=== PATIENT | female | born 1945 | race Caucasian/White ===

== ENCOUNTER 2021-09-09 09:53 | Inpatient (IN) | payer MEDICARE ==
[~2021-09-09] VITALS: Ht 170.2 cm; Wt 61.7 kg
[~2021-09-09 09:53] MED LIST: ATROPINE SULFATE 1MG/10ML SYR ONE; ETOMIDATE 2MG/ML 10ML VIAL IV ONE; SUCCINYLCHOLINE CHLORIDE 200MG/10ML IV ONE; VECURONIUM BROMIDE 10 MG/VIAL IV ONE
[2021-09-09] MEDS ORDERED: SODIUM CHLORIDE 0.9% 1000ML BAG (SEPSIS BOLUS) IV ONE (10:15)
[2021-09-09 10:54] LABS: BASOPHILS % 0.1 % (0.0-2.0); EOSINOPHILS % 0.2 % (0.0-5.0); HEMATOCRIT. 27.8 % (36.0-48.0); HEMOGLOBIN. 9.8 g/dL (12.0-16.0); LYMPHOCYTES % 13.8 % (20.0-50.0); MEAN CORPUSCULAR HEMOGLOBIN 37.9 pg (28.0-32.0); MEAN CORPUSCULAR VOLUME 106.6 fL (81.0-99.0); MEAN PLATELET VOLUME 8.1 fl (7.4-10.4); MONOCYTES % 8.7 % (2.0-8.0); NEUTROPHILS % 77.2 % (40.0-76.0); PLATELET 295 x1000/uL (130-400); RED CELL DISTRIBUTION WIDTH 13.3 % (11.6-14.6)
[2021-09-09 10:58] LABS: CHLORIDE 86 mEq/L (98-107)
[2021-09-09 11:02] LABS: ETHANOL BLOOD < 10 mg/dL
[2021-09-09] MEDS ORDERED: VANCOMYCIN 1G PREMIX 200 ML IV ONE (12:00)
[2021-09-09] MEDS ORDERED: PIPERACILLIN/TAZ 3.375G PREMIX 50 ML IV ONE (12:00)
[2021-09-09] MEDS ORDERED: MAGNESIUM 2 G PREMIX 50 ML IV ONE (12:15)
[2021-09-09] MEDS ORDERED: HEPARIN 5000 UNITS/ML VIAL IV ONE (12:30)
[2021-09-09] MEDS ORDERED: HEPARIN 25,000 UNITS PREMIX 250 ML IV SCH (12:30)
[2021-09-09] MEDS ORDERED: HEPARIN 25,000 UNITS in DEXT 5% WATER 245 ML IV PRN (12:45)
[2021-09-09] MEDS ORDERED: VANCOMYCIN 1,000 MG in DEXT 5% WATER 250 ML IV NR (12:45)
[2021-09-09] MEDS ORDERED: HEPARIN IV SCH ×2 (12:50→12:52)
[2021-09-09] MEDS ORDERED: [UNRECOGNIZED DRUG - OTHER] IV SCH (12:50)
[2021-09-09] MEDS ORDERED: [UNRECOGNIZED DRUG - OTHER] IV SCH (12:52)
[2021-09-09 12:59] LABS: CLARITY URINE CLEAR (CLEAR); COLOR URINE YELLOW (YELLOW); KETONES URINE NEGATIVE (NEGATIVE); LEUKOCYTE ESTERASE URINE NEGATIVE (NEGATIVE); NITRITE URINE NEGATIVE (NEGATIVE); OCCULT BLOOD URINE NEGATIVE (NEGATIVE); PROTEIN URINE 1+ (NEGATIVE); SPECIFIC GRAVITY URINE 1.025 (1.005-1.030); UROBILINOGEN URINE 0.2 E.U./dL (0.2-1.0)
[2021-09-09] MEDS ORDERED: HEPARIN 25,000 UNITS in DEXT 5% WATER 245 ML IV SCH (13:00)
[2021-09-09 13:08] LABS: *BARBITURATES SCREEN URINE NEGATIVE (NEGATIVE); *BENZODIAZEPINES SCREEN URINE NEGATIVE (NEGATIVE); *COCAINE SCREEN URINE NEGATIVE (NEGATIVE)
[2021-09-09 13:09] LABS: CANNABINOID URINE SCREEN NEGATIVE (NEGATIVE); METHADONE URINE SCREEN NEGATIVE (NEGATIVE); OPIATES URINE SCREEN NEGATIVE (NEGATIVE); PHENCYCLIDINE URINE SCREEN NEGATIVE (NEGATIVE)
[2021-09-09] MEDS ORDERED: LEVETIRACETAM 1000MG PREMIX 100 ML IV ONE (13:15)
[2021-09-09 13:18] LABS: *AMPHETAMINES SCREEN URINE NEGATIVE (NEGATIVE)
[2021-09-09 13:22] LABS: INR 1.1; PARTIAL THROMBOPLASTIN TIME 29.3 sec (23.4-31.0); PROTHROMBIN TIME 11.7 sec (9.6-11.0)
[2021-09-09] MEDS: PANTOPRAZOLE SODIUM 40 MG/VIAL IV SCH (13:30)
[2021-09-09] MEDS ORDERED: ACETAMINOPHEN 650MG SUPP PR PRN (13:30)
[2021-09-09] MEDS ORDERED: SUCCINYLCHOLINE CHLORIDE 200MG/10ML IV ONE (13:30)
[2021-09-09] MEDS ORDERED: ONDANSETRON HCL 4MG/2ML INJ IV PRN (13:30)
[2021-09-09] MEDS: DEXT 5%/0.45% NACL 1000ML 1,000 ML IV SCH (13:30)
[2021-09-09] MEDS ORDERED: ETOMIDATE 2MG/ML 10ML VIAL IV ONE (13:30)
[2021-09-09 13:56] LABS: BG CARBOXYHEMOGLOBIN 0.3 % (0.5-1.5); BG DEOXYHEMOGLOBIN 0.6 % (0.0-5.0); BG HCO3 ACT 14.8 mmol/L (22.0-26.0); BG METHEMOGLOBIN 0.3 % (0.0-1.5); BG OXYGEN SATURATION 99.4 % (92.0-98.5); BG OXYHEMOGLOBIN 98.8 % (94.0-97.0); BG PCO2 41.7 mmHg (35.0-45.0); BG PH 7.169 (7.350-7.450); BG PO2 264.6 mmHg (75.0-100.0); BG SAMPLE SITE RIGHT FEMORAL; BG TOTAL HEMOGLOBIN 10.9 g/dL (12.0-18.0); BG VENT MODE VENT - AC
[2021-09-09] MEDS ORDERED: HEPARIN 5000 UNITS/ML VIAL IV PRN ×2 (14:00)
[2021-09-09] MEDS ORDERED: FENTANYL CITRATE/PF 2,500 MCG in SODIUM CHLORIDE 0.9% 200 ML IV PRN ×2 (14:15→14:30)
[2021-09-09] MEDS ORDERED: PROPOFOL 10MG/ML 100ML 100 ML IV PRN (14:15)
[2021-09-09 14:27] LABS: T4 FREE 1.4 ng/dL (0.76-1.46)
[2021-09-09] MEDS ORDERED: SODIUM BICARBONATE 8.4% 1 MEQ/ML 50ML SYR IV NR (14:30)
[2021-09-09] MEDS: FENTANYL 2500MCG/250ML PMX 250 ML IV PRN (15:05)
[2021-09-09 15:09] LABS: BG BASE EXCESS -7.7 mmol/L (-2.0-2.0); BG CARBOXYHEMOGLOBIN 0.3 % (0.5-1.5); BG DEOXYHEMOGLOBIN 0.5 % (0.0-5.0); BG HCO3 ACT 18.2 mmol/L (22.0-26.0); BG METHEMOGLOBIN 0.4 % (0.0-1.5); BG OXYGEN SATURATION 99.5 % (92.0-98.5); BG OXYHEMOGLOBIN 98.8 % (94.0-97.0); BG PH 7.297 (7.350-7.450); BG PO2 317.5 mmHg (75.0-100.0); BG SAMPLE SITE RIGHT BRACHIAL; BG TOTAL HEMOGLOBIN 10.1 g/dL (12.0-18.0); BG VENT MODE VENT - AC
[2021-09-09] MEDS ORDERED: PIPERACILLIN/TAZOBACTAM 3.375 G in DEXTROSE 5% WATER 50 ML IV SCH (22:00)
[2021-09-09] MEDS ORDERED: FOLIC ACID 1 MG, THIAMINE HCL 100 MG, MVI, ADULT NO.1 10 ML in DEXTROSE 5% WATER 1,000 ML IV SCH ×4 (23:00)
[2021-09-10] VITALS (88 sets, daily range): BP systolic 86–129; BP diastolic 30–109
[2021-09-10] MEDS ORDERED: PHENYLEPHRINE 100 MG in DEXT 5% WATER 250 ML IV PRN (01:00)
[2021-09-10] MEDS ORDERED: PHENYLEPHRINE 100 MG in DEXT 5% WATER 240 ML IV PRN (02:00)
[2021-09-10] MEDS: NOREPINEPHRINE 8 MG in DEXTROSE 5% WATER 250 ML IV PRN ×2 (03:20→09:34)
[2021-09-10 04:13] LABS: BASOPHILS % 0.1 % (0.0-2.0); EOSINOPHILS % 0.1 % (0.0-5.0); HEMATOCRIT. 32.1 % (36.0-48.0); LYMPHOCYTES % 16.5 % (20.0-50.0); MEAN CORPUSCULAR HEMOGLOBIN 36.8 pg (28.0-32.0); MEAN PLATELET VOLUME 8.3 fl (7.4-10.4); MONOCYTES % 10.2 % (2.0-8.0); NEUTROPHILS % 73.1 % (40.0-76.0); PLATELET 247 x1000/uL (130-400); RED BLOOD CELL COUNT 2.72 mill/uL (4.2-5.4); RED CELL DISTRIBUTION WIDTH 15.3 % (11.6-14.6)
[2021-09-10 04:28] LABS: CHLORIDE 93 mEq/L (98-107)
[2021-09-10] MEDS: PIPERACILLIN/TAZOBACTAM 3.375 G in DEXTROSE 5% WATER 50 ML IV SCH ×3 (05:30→21:33)
[2021-09-10 05:48] LABS: PLATELET ESTIMATE NORMAL
[2021-09-10] MEDS: DEXT 5%/0.45% NACL 1000ML 1,000 ML IV SCH ×2 (06:29→23:00)
[2021-09-10] MEDS: PANTOPRAZOLE SODIUM 40 MG/VIAL IV SCH (08:06)
[2021-09-10 09:38] LABS: BG BASE EXCESS 1.2 mmol/L (-2.0-2.0); BG CARBOXYHEMOGLOBIN 0.3 % (0.5-1.5); BG DEOXYHEMOGLOBIN 1.3 % (0.0-5.0); BG FRACTION INSPIRED OXYGEN 40; BG HCO3 ACT 22.7 mmol/L (22.0-26.0); BG METHEMOGLOBIN 0.2 % (0.0-1.5); BG OXYGEN SATURATION 98.7 % (92.0-98.5); BG OXYHEMOGLOBIN 98.2 % (94.0-97.0); BG PCO2 25.8 mmHg (35.0-45.0); BG PH 7.563 (7.350-7.450); BG SAMPLE SITE LEFT RADIAL; BG TOTAL HEMOGLOBIN 9.6 g/dL (12.0-18.0); BG VENT MODE VENT - AC
[2021-09-10] MEDS ORDERED: PROPOFOL 10MG/ML 100ML 100 ML IV PRN (12:45)
[2021-09-10] MEDS ORDERED: IPRATROPIUM/ALBUTEROL 0.5-3(2.5)MG/3ML NEB HHN PRN (12:45)
[2021-09-10] MEDS: LEVETIRACETAM 500MG PREMIX 100 ML IV SCH ×2 (13:45→20:31)
[2021-09-10] MEDS: IPRATROPIUM/ALBUTEROL 0.5-3(2.5)MG/3ML NEB HHN SCH (20:40)
[2021-09-10] MEDS: FENTANYL 2500MCG/250ML PMX 250 ML IV PRN (21:31)
[2021-09-11] VITALS (91 sets, daily range): BP systolic 83–143; BP diastolic 29–89
[2021-09-11] MEDS: NOREPINEPHRINE 8 MG in DEXT 5% WATER 242 ML IV PRN ×2 (00:13→21:54)
[2021-09-11] MEDS: IPRATROPIUM/ALBUTEROL 0.5-3(2.5)MG/3ML NEB HHN SCH ×4 (00:30→20:36)
[2021-09-11] MEDS: PIPERACILLIN/TAZOBACTAM 3.375 G in DEXTROSE 5% WATER 50 ML IV SCH ×3 (05:31→21:53)
[2021-09-11 08:07] LABS: BG BASE EXCESS 2.3 mmol/L (-2.0-2.0); BG CARBOXYHEMOGLOBIN 0.2 % (0.5-1.5); BG DEOXYHEMOGLOBIN 1.4 % (0.0-5.0); BG HCO3 ACT 25.3 mmol/L (22.0-26.0); BG METHEMOGLOBIN 0.1 % (0.0-1.5); BG OXYGEN SATURATION 98.6 % (92.0-98.5); BG OXYHEMOGLOBIN 98.3 % (94.0-97.0); BG PCO2 32.6 mmHg (35.0-45.0); BG PH 7.507 (7.350-7.450); BG PO2 135.3 mmHg (75.0-100.0); BG SAMPLE SITE RIGHT RADIAL; BG TOTAL HEMOGLOBIN 8.6 g/dL (12.0-18.0); BG VENT MODE VENT - AC
[2021-09-11] MEDS: PANTOPRAZOLE SODIUM 40 MG/VIAL IV SCH (08:29)
[2021-09-11] MEDS: LEVETIRACETAM 500MG PREMIX 100 ML IV SCH ×2 (08:29→21:01)
[2021-09-11] MEDS ORDERED: ACETAMINOPHEN 650MG/20.3ML UDC PO PRN (08:30)
[2021-09-11 13:08] LABS: BASOPHILS % 0.2 % (0.0-2.0); CHLORIDE 99 mEq/L (98-107); EOSINOPHILS % 0.4 % (0.0-5.0); HEMATOCRIT. 22.3 % (36.0-48.0); HEMOGLOBIN. 7.6 g/dL (12.0-16.0); LYMPHOCYTES % 19.1 % (20.0-50.0); MEAN CORPUSCULAR VOLUME 108.2 fL (81.0-99.0); MEAN PLATELET VOLUME 7.9 fl (7.4-10.4); MONOCYTES % 9.9 % (2.0-8.0); NEUTROPHILS % 70.4 % (40.0-76.0); PLATELET 283 x1000/uL (130-400); RED BLOOD CELL COUNT 2.06 mill/uL (4.2-5.4); RED CELL DISTRIBUTION WIDTH 13.9 % (11.6-14.6)
[2021-09-11 13:59] LABS: TOTAL IRON BINDING CAPACITY 221 ug/dL (250-450)
[2021-09-11] MEDS ORDERED: POTASSIUM CHLORIDE 20MEQ/PACKET PO NR (16:25)
[2021-09-11] MEDS: DEXT 5%/0.45% NACL 1000ML 1,000 ML IV SCH (16:46)
[2021-09-11] MEDS: PROPOFOL 10MG/ML 100ML 100 ML IV PRN (19:37)
[2021-09-12] VITALS (95 sets, daily range): BP systolic 92–166; BP diastolic 46–99
[2021-09-12] MEDS: IPRATROPIUM/ALBUTEROL 0.5-3(2.5)MG/3ML NEB HHN SCH ×4 (00:13→20:48)
[2021-09-12] MEDS: PROPOFOL 10MG/ML 100ML 100 ML IV PRN (05:07)
[2021-09-12 06:23] LABS: HEMATOCRIT 26.2 % (36.0-48.0); HEMOGLOBIN 9.1 g/dL (12.0-16.0)
[2021-09-12] MEDS: PIPERACILLIN/TAZOBACTAM 3.375 G in DEXTROSE 5% WATER 50 ML IV SCH ×3 (06:27→21:32)
[2021-09-12] MEDS ORDERED: FENTANYL CITRATE 2,500 MCG in SODIUM CHLORIDE 0.9% 200 ML IV PRN (07:15)
[2021-09-12 08:40] LABS: BG BASE EXCESS 1.5 mmol/L (-2.0-2.0); BG CARBOXYHEMOGLOBIN 0.3 % (0.5-1.5); BG DEOXYHEMOGLOBIN 1.7 % (0.0-5.0); BG FRACTION INSPIRED OXYGEN 35; BG HCO3 ACT 25.5 mmol/L (22.0-26.0); BG METHEMOGLOBIN 0.3 % (0.0-1.5); BG OXYGEN SATURATION 98.3 % (92.0-98.5); BG OXYHEMOGLOBIN 97.7 % (94.0-97.0); BG PCO2 37.6 mmHg (35.0-45.0); BG PH 7.449 (7.350-7.450); BG PO2 116.7 mmHg (75.0-100.0); BG SAMPLE SITE LEFT RADIAL; BG TOTAL HEMOGLOBIN 9.3 g/dL (12.0-18.0); BG VENT MODE VENT - AC
[2021-09-12] MEDS: DEXT 5%/0.45% NACL 1000ML 1,000 ML IV SCH (09:41)
[2021-09-12] MEDS: PANTOPRAZOLE SODIUM 40 MG/VIAL IV SCH (09:41)
[2021-09-12] MEDS: LEVETIRACETAM 500MG PREMIX 100 ML IV SCH ×2 (09:41→21:32)
[2021-09-12] MEDS: ENOXAPARIN 40MG/0.4ML SYR SUBCUT SCH (10:15)
[2021-09-12 12:03] LABS: BG BASE EXCESS 1.1 mmol/L (-2.0-2.0); BG CARBOXYHEMOGLOBIN 0.3 % (0.5-1.5); BG DEOXYHEMOGLOBIN 1.9 % (0.0-5.0); BG FRACTION INSPIRED OXYGEN 35; BG METHEMOGLOBIN 0.1 % (0.0-1.5); BG OXYGEN SATURATION 98.1 % (92.0-98.5); BG OXYHEMOGLOBIN 97.7 % (94.0-97.0); BG PCO2 31.3 mmHg (35.0-45.0); BG PH 7.502 (7.350-7.450); BG PO2 118.2 mmHg (75.0-100.0); BG SAMPLE SITE LEFT RADIAL; BG TOTAL HEMOGLOBIN 8.7 g/dL (12.0-18.0); BG VENT MODE VENT - CPAP
[2021-09-12 12:22] LABS: BASOPHILS % 0.1 % (0.0-2.0); HEMATOCRIT. 25.4 % (36.0-48.0); HEMOGLOBIN. 8.8 g/dL (12.0-16.0); MEAN CORPUSCULAR HEMOGLOBIN 36.8 pg (28.0-32.0); MEAN CORPUSCULAR VOLUME 106.1 fL (81.0-99.0); MEAN PLATELET VOLUME 7.8 fl (7.4-10.4); MONOCYTES % 9.2 % (2.0-8.0); NEUTROPHILS % 73.7 % (40.0-76.0); PLATELET 236 x1000/uL (130-400); RED BLOOD CELL COUNT 2.39 mill/uL (4.2-5.4); RED CELL DISTRIBUTION WIDTH 15.1 % (11.6-14.6)
[2021-09-12 12:32] LABS: CHLORIDE 102 mEq/L (98-107)
[2021-09-12] MEDS: DILTIAZEM HCL 30MG TABLET PO PRN (13:03)
[2021-09-12] MEDS: ACETAMINOPHEN 650MG/20.3ML UDC PO PRN (13:18)
[2021-09-12] MEDS ORDERED: AMIODARONE HCL 900 MG in DEXT 5% WATER 482 ML IV PRN (14:45)
[2021-09-12] MEDS ORDERED: DOCUSATE SODIUM SUGAR FREE 100MG/10ML UDC NG SCH (17:30)
[2021-09-13] VITALS (91 sets, daily range): BP systolic 92–143; BP diastolic 44–98
[2021-09-13] MEDS: IPRATROPIUM/ALBUTEROL 0.5-3(2.5)MG/3ML NEB HHN SCH ×4 (01:56→20:55)
[2021-09-13] MEDS: DEXT 5%/0.45% NACL 1000ML 1,000 ML IV SCH ×2 (02:07→17:17)
[2021-09-13] MEDS: LORAZEPAM 2MG/ML CPJ IV PRN ×3 (02:16→20:53)
[2021-09-13] MEDS: PIPERACILLIN/TAZOBACTAM 3.375 G in DEXTROSE 5% WATER 50 ML IV SCH ×3 (05:38→21:50)
[2021-09-13] MEDS ORDERED: IPRATROPIUM/ALBUTEROL 0.5-3(2.5)MG/3ML NEB ONE ×2 (08:10→11:01)
[2021-09-13] MEDS: LEVETIRACETAM 500MG PREMIX 100 ML IV SCH ×2 (08:38→20:52)
[2021-09-13] MEDS: PANTOPRAZOLE SODIUM 40 MG/VIAL IV SCH (08:38)
[2021-09-13 08:44] LABS: BG BASE EXCESS 1.1 mmol/L (-2.0-2.0); BG CARBOXYHEMOGLOBIN 0.3 % (0.5-1.5); BG DEOXYHEMOGLOBIN 1.8 % (0.0-5.0); BG HCO3 ACT 25.3 mmol/L (22.0-26.0); BG METHEMOGLOBIN 0.2 % (0.0-1.5); BG OXYGEN SATURATION 98.2 % (92.0-98.5); BG OXYHEMOGLOBIN 97.7 % (94.0-97.0); BG PCO2 38.8 mmHg (35.0-45.0); BG PH 7.433 (7.350-7.450); BG PO2 106.2 mmHg (75.0-100.0); BG SAMPLE SITE RIGHT RADIAL; BG TOTAL HEMOGLOBIN 8.9 g/dL (12.0-18.0); BG VENT MODE COOL AEROSOL
[2021-09-13] MEDS: FOLIC ACID 1MG TABLET PO SCH (08:44)
[2021-09-13] MEDS: THIAMINE HCL 100MG TABLET PO SCH (08:44)
[2021-09-13] MEDS: ENOXAPARIN 40MG/0.4ML SYR SUBCUT SCH (11:16)
[2021-09-13] MEDS: DILTIAZEM HCL 30MG TABLET PO PRN ×2 (14:07→21:05)
[2021-09-14] VITALS (87 sets, daily range): BP systolic 96–188; BP diastolic 50–169
[2021-09-14] MEDS: PIPERACILLIN/TAZOBACTAM 3.375 G in DEXTROSE 5% WATER 50 ML IV SCH ×3 (06:14→21:12)
[2021-09-14] MEDS: PANTOPRAZOLE SODIUM 40 MG/VIAL IV SCH (08:36)
[2021-09-14] MEDS: THIAMINE HCL 100MG TABLET PO SCH (08:36)
[2021-09-14] MEDS: FOLIC ACID 1MG TABLET PO SCH (08:36)
[2021-09-14] MEDS: LEVETIRACETAM 500MG PREMIX 100 ML IV SCH ×2 (08:37→20:28)
[2021-09-14] MEDS: IPRATROPIUM/ALBUTEROL 0.5-3(2.5)MG/3ML NEB HHN SCH ×2 (08:41)
[2021-09-14] MEDS: DILTIAZEM HCL 30MG TABLET PO PRN (09:33)
[2021-09-14] MEDS: METOPROLOL TARTRATE 25MG TABLET PO SCH ×2 (09:41→20:29)
[2021-09-14] MEDS: ENOXAPARIN 40MG/0.4ML SYR SUBCUT SCH (09:42)
[2021-09-14] MEDS: DEXT 5%/0.45% NACL 1000ML 1,000 ML IV SCH (09:55)
[2021-09-14] MEDS ORDERED: BENZONATATE 100MG CAPSULE PO PRN (10:00)
[2021-09-14] MEDS ORDERED: METO100T16 MT (11:47)
[2021-09-14] MEDS ORDERED: FURO-152 PO (11:47)
[2021-09-14] MEDS ORDERED: APIX5TAB MT (11:47)
[2021-09-14] MEDS ORDERED: LISI-652 MT (11:47)
[2021-09-14] MEDS ORDERED: DIGOXIN 500MCG/2ML AMP IV SCH (12:00)
[2021-09-14 12:53] LABS: BASOPHILS % 0.4 % (0.0-2.0); EOSINOPHILS % 1.1 % (0.0-5.0); HEMATOCRIT. 26.8 % (36.0-48.0); LYMPHOCYTES % 11.4 % (20.0-50.0); MEAN CORPUSCULAR HEMOGLOBIN 35.7 pg (28.0-32.0); MEAN CORPUSCULAR VOLUME 105.7 fL (81.0-99.0); MEAN PLATELET VOLUME 7.6 fl (7.4-10.4); MONOCYTES % 9.9 % (2.0-8.0); NEUTROPHILS % 77.2 % (40.0-76.0); PLATELET 277 x1000/uL (130-400); RED BLOOD CELL COUNT 2.53 mill/uL (4.2-5.4)
[2021-09-14 12:58] LABS: CHLORIDE 101 mEq/L (98-107)
[2021-09-14] MEDS: GUAIFENESIN-DM 200MG-20MG/10ML UDC PO PRN ×2 (13:02→23:47)
[2021-09-14] MEDS: LORAZEPAM 2MG/ML CPJ IV PRN ×2 (13:26→20:28)
[2021-09-14] MEDS: IPRATROPIUM BROMIDE (0.02%) 0.5MG/2.5ML NEB HHN SCH ×2 (14:08→20:41)
[2021-09-14] MEDS: ACETAMINOPHEN 650MG/20.3ML UDC PO PRN (18:51)
[2021-09-15] VITALS (49 sets, daily range): BP systolic 118–173; BP diastolic 60–140
[2021-09-15] MEDS: IPRATROPIUM BROMIDE (0.02%) 0.5MG/2.5ML NEB HHN SCH ×4 (01:06→21:06)
[2021-09-15] MEDS: LORAZEPAM 2MG/ML CPJ IV PRN (02:01)
[2021-09-15] MEDS: DEXT 5%/0.45% NACL 1000ML 1,000 ML IV SCH (02:02)
[2021-09-15] MEDS: DILTIAZEM HCL 30MG TABLET PO PRN (03:13)
[2021-09-15] MEDS: PIPERACILLIN/TAZOBACTAM 3.375 G in DEXTROSE 5% WATER 50 ML IV SCH (05:04)
[2021-09-15 06:19] LABS: BG BASE EXCESS -0.5 mmol/L (-2.0-2.0); BG CARBOXYHEMOGLOBIN 0.3 % (0.5-1.5); BG DEOXYHEMOGLOBIN 1.4 % (0.0-5.0); BG FRACTION INSPIRED OXYGEN 100; BG HCO3 ACT 23.1 mmol/L (22.0-26.0); BG METHEMOGLOBIN 0.3 % (0.0-1.5); BG OXYGEN SATURATION 98.6 % (92.0-98.5); BG PCO2 34.1 mmHg (35.0-45.0); BG PH 7.448 (7.350-7.450); BG PO2 145.2 mmHg (75.0-100.0); BG SAMPLE SITE LEFT RADIAL; BG TOTAL HEMOGLOBIN 11.1 g/dL (12.0-18.0); BG VENT MODE MASK - NRB
[2021-09-15] MEDS ORDERED: FUROSEMIDE 40MG/4ML VIAL IVP SCH (08:00)
[2021-09-15] MEDS: FOLIC ACID 1MG TABLET PO SCH (09:24)
[2021-09-15] MEDS: PANTOPRAZOLE SODIUM 40 MG/VIAL IV SCH (09:24)
[2021-09-15] MEDS: METOPROLOL TARTRATE 50MG TABLET PO SCH ×2 (09:25→20:54)
[2021-09-15] MEDS: LEVETIRACETAM 500MG PREMIX 100 ML IV SCH ×2 (09:25→20:27)
[2021-09-15] MEDS: THIAMINE HCL 100MG TABLET PO SCH (09:25)
[2021-09-15 10:10] LABS: CHLORIDE 101 mEq/L (98-107); HEMATOCRIT. 28.9 % (36.0-48.0); HEMOGLOBIN. 9.8 g/dL (12.0-16.0); MEAN CORPUSCULAR HEMOGLOBIN 35.8 pg (28.0-32.0); MEAN CORPUSCULAR VOLUME 105.7 fL (81.0-99.0); MEAN PLATELET VOLUME 7.7 fl (7.4-10.4); PLATELET 286 x1000/uL (130-400); RED BLOOD CELL COUNT 2.74 mill/uL (4.2-5.4); RED CELL DISTRIBUTION WIDTH 14.7 % (11.6-14.6)
[2021-09-15 10:14] LABS: BG BASE EXCESS 0.5 mmol/L (-2.0-2.0); BG CARBOXYHEMOGLOBIN 0.3 % (0.5-1.5); BG DEOXYHEMOGLOBIN 0.4 % (0.0-5.0); BG FRACTION INSPIRED OXYGEN 100; BG HCO3 ACT 23.1 mmol/L (22.0-26.0); BG METHEMOGLOBIN 0.3 % (0.0-1.5); BG OXYGEN SATURATION 99.6 % (92.0-98.5); BG PCO2 30.5 mmHg (35.0-45.0); BG PH 7.497 (7.350-7.450); BG PO2 312.9 mmHg (75.0-100.0); BG SAMPLE SITE LEFT RADIAL; BG TOTAL HEMOGLOBIN 11.2 g/dL (12.0-18.0); BG VENT MODE MASK - BIPAP
[2021-09-15 12:07] LABS: PLATELET ESTIMATE NORMAL
[2021-09-15] MEDS: FUROSEMIDE 40MG/4ML VIAL IVP SCH (16:17)
[2021-09-16] VITALS (46 sets, daily range): BP systolic 103–170; BP diastolic 34–118
[2021-09-16] MEDS: IPRATROPIUM BROMIDE (0.02%) 0.5MG/2.5ML NEB HHN SCH ×4 (04:52→20:39)
[2021-09-16] MEDS: FUROSEMIDE 40MG/4ML VIAL IVP SCH ×2 (05:46→16:29)
[2021-09-16 06:15] LABS: BASOPHILS % 0.5 % (0.0-2.0); EOSINOPHILS % 0.4 % (0.0-5.0); HEMATOCRIT. 26.5 % (36.0-48.0); HEMOGLOBIN. 9.2 g/dL (12.0-16.0); LYMPHOCYTES % 7.7 % (20.0-50.0); MEAN CORPUSCULAR HEMOGLOBIN 36.2 pg (28.0-32.0); MEAN CORPUSCULAR VOLUME 104.3 fL (81.0-99.0); MEAN PLATELET VOLUME 8.2 fl (7.4-10.4); MONOCYTES % 7.1 % (2.0-8.0); NEUTROPHILS % 84.3 % (40.0-76.0); PLATELET 260 x1000/uL (130-400); RED BLOOD CELL COUNT 2.54 mill/uL (4.2-5.4); RED CELL DISTRIBUTION WIDTH 13.9 % (11.6-14.6)
[2021-09-16 06:47] LABS: CHLORIDE 95 mEq/L (98-107)
[2021-09-16] MEDS: PANTOPRAZOLE SODIUM 40 MG/VIAL IV SCH (08:08)
[2021-09-16] MEDS: LEVETIRACETAM 500MG PREMIX 100 ML IV SCH ×2 (08:08→20:29)
[2021-09-16] MEDS: THIAMINE HCL 100MG TABLET PO SCH (08:09)
[2021-09-16] MEDS: METOPROLOL TARTRATE 50MG TABLET PO SCH ×2 (08:09→21:13)
[2021-09-16] MEDS: FOLIC ACID 1MG TABLET PO SCH (08:09)
[2021-09-16] MEDS: ACETAMINOPHEN 650MG/20.3ML UDC PO PRN (08:37)
[2021-09-16 10:30] LABS: BG BASE EXCESS 6.8 mmol/L (-2.0-2.0); BG CARBOXYHEMOGLOBIN 0.3 % (0.5-1.5); BG DEOXYHEMOGLOBIN 1.8 % (0.0-5.0); BG HCO3 ACT 29.4 mmol/L (22.0-26.0); BG METHEMOGLOBIN 0.3 % (0.0-1.5); BG OXYGEN SATURATION 98.2 % (92.0-98.5); BG OXYHEMOGLOBIN 97.6 % (94.0-97.0); BG PCO2 34.3 mmHg (35.0-45.0); BG PH 7.551 (7.350-7.450); BG PO2 110.4 mmHg (75.0-100.0); BG SAMPLE SITE RIGHT RADIAL; BG TOTAL HEMOGLOBIN 10.3 g/dL (12.0-18.0); BG VENT MODE MASK - BIPAP
[2021-09-16] MEDS ORDERED: IOHEXOL-350 100 ML BOTTLE ONE (11:48)
[2021-09-17] VITALS (29 sets, daily range): BP systolic 112–213; BP diastolic 46–142
[2021-09-17] MEDS: IPRATROPIUM BROMIDE (0.02%) 0.5MG/2.5ML NEB HHN SCH ×4 (02:21→21:31)
[2021-09-17 05:52] LABS: HEMATOCRIT 25.5 % (36.0-48.0); HEMOGLOBIN 8.7 g/dL (12.0-16.0); MEAN CORPUSCULAR HEMOGLOBIN 35.6 pg (28.0-32.0); MEAN CORPUSCULAR VOLUME 104.2 fL (81.0-99.0); PLATELET 254 x1000/uL (130-400); RED BLOOD CELL COUNT 2.45 mill/uL (4.2-5.4); RED CELL DISTRIBUTION WIDTH 14.6 % (11.6-14.6)
[2021-09-17] MEDS: FUROSEMIDE 40MG/4ML VIAL IVP SCH ×2 (06:05→22:20)
[2021-09-17 06:08] LABS: CHLORIDE 96 mEq/L (98-107)
[2021-09-17] MEDS: FOLIC ACID 1MG TABLET PO SCH (08:35)
[2021-09-17] MEDS: THIAMINE HCL 100MG TABLET PO SCH (08:35)
[2021-09-17] MEDS: METOPROLOL TARTRATE 50MG TABLET PO SCH ×2 (08:35→21:13)
[2021-09-17] MEDS: LEVETIRACETAM 500MG PREMIX 100 ML IV SCH ×2 (08:36→20:01)
[2021-09-17] MEDS: PANTOPRAZOLE SODIUM 40 MG/VIAL IV SCH (08:36)
[2021-09-17 09:13] LABS: BG BASE EXCESS 10.3 mmol/L (-2.0-2.0); BG CARBOXYHEMOGLOBIN 0.7 % (0.5-1.5); BG FRACTION INSPIRED OXYGEN 30; BG HCO3 ACT 33.4 mmol/L (22.0-26.0); BG METHEMOGLOBIN 0.4 % (0.0-1.5); BG OXYHEMOGLOBIN 96.9 % (94.0-97.0); BG PCO2 39.1 mmHg (35.0-45.0); BG PO2 101.3 mmHg (75.0-100.0); BG SAMPLE SITE RIGHT RADIAL; BG TOTAL HEMOGLOBIN 9.4 g/dL (12.0-18.0); BG VENT MODE MASK - BIPAP
[2021-09-17] MEDS ORDERED: POTASSIUM CHLORIDE INJ 40 MEQ in DEXT 5% WATER 250 ML IV ONE (11:45)
[2021-09-17] MEDS ORDERED: KCL 20MEQ/100ML PREMIX 100 ML IV NR ×2 (13:00→15:01)
[2021-09-17] MEDS ORDERED: IOHEXOL-350 100 ML BOTTLE ONE (15:10)
[2021-09-17] MEDS: SPIRONOLACTONE 25MG TABLET PO SCH (16:19)
[2021-09-17] MEDS: LORAZEPAM 2MG/ML CPJ IV PRN (23:26)
[2021-09-17] MEDS: DILTIAZEM HCL 5MG/ML 5ML VIAL IV PRN (23:26)
[2021-09-18] VITALS (59 sets, daily range): BP systolic 99–186; BP diastolic 32–144
[2021-09-18] MEDS: IPRATROPIUM BROMIDE (0.02%) 0.5MG/2.5ML NEB HHN SCH ×4 (00:56→20:52)
[2021-09-18 04:52] LABS: CHLORIDE 98 mEq/L (98-107)
[2021-09-18 04:55] LABS: HEMOGLOBIN. 8.7 g/dL (12.0-16.0); MEAN CORPUSCULAR HEMOGLOBIN 34.9 pg (28.0-32.0); MEAN PLATELET VOLUME 8.2 fl (7.4-10.4); PLATELET 280 x1000/uL (130-400); RED CELL DISTRIBUTION WIDTH 14.7 % (11.6-14.6)
[2021-09-18] MEDS: FUROSEMIDE 40MG/4ML VIAL IVP SCH ×2 (05:54→18:54)
[2021-09-18 07:07] LABS: NUCLEATED RED BLOOD CELLS 2 /100 WBC
[2021-09-18 07:08] LABS: PLATELET ESTIMATE NORMAL
[2021-09-18] MEDS: SPIRONOLACTONE 25MG TABLET PO SCH (08:13)
[2021-09-18] MEDS: LEVETIRACETAM 500MG PREMIX 100 ML IV SCH ×2 (08:13→20:44)
[2021-09-18] MEDS: METOPROLOL TARTRATE 50MG TABLET PO SCH ×2 (08:13→20:43)
[2021-09-18] MEDS: FOLIC ACID 1MG TABLET PO SCH (08:13)
[2021-09-18] MEDS: PANTOPRAZOLE SODIUM 40 MG/VIAL IV SCH (08:13)
[2021-09-18] MEDS: THIAMINE HCL 100MG TABLET PO SCH (08:13)
[2021-09-18] MEDS: ACETYLCYSTEINE 100MG/ML 10% VIAL 4ML INH SCH (15:14)
[2021-09-18] MEDS: DILTIAZEM HCL 5MG/ML 5ML VIAL IV PRN (20:29)
[2021-09-19] VITALS (49 sets, daily range): BP systolic 97–170; BP diastolic 47–117
[2021-09-19] MEDS: ACETYLCYSTEINE 100MG/ML 10% VIAL 4ML INH SCH ×4 (00:44→22:00)
[2021-09-19] MEDS: IPRATROPIUM BROMIDE (0.02%) 0.5MG/2.5ML NEB HHN SCH ×5 (00:44→23:30)
[2021-09-19] MEDS: ACETAMINOPHEN 650MG/20.3ML UDC PO PRN ×2 (00:55→13:18)
[2021-09-19 07:37] LABS: CHLORIDE 99 mEq/L (98-107)
[2021-09-19] MEDS: FUROSEMIDE 40MG/4ML VIAL IVP SCH ×2 (07:37→17:02)
[2021-09-19 07:40] LABS: HEMATOCRIT. 24.9 % (36.0-48.0); HEMOGLOBIN. 8.6 g/dL (12.0-16.0); MEAN PLATELET VOLUME 8.4 fl (7.4-10.4); PLATELET 260 x1000/uL (130-400); RED CELL DISTRIBUTION WIDTH 14.6 % (11.6-14.6)
[2021-09-19 07:46] LABS: BG BASE EXCESS 11.3 mmol/L (-2.0-2.0); BG CARBOXYHEMOGLOBIN 0.7 % (0.5-1.5); BG DEOXYHEMOGLOBIN 4.7 % (0.0-5.0); BG HCO3 ACT 34.6 mmol/L (22.0-26.0); BG METHEMOGLOBIN 0.2 % (0.0-1.5); BG OXYGEN SATURATION 95.3 % (92.0-98.5); BG OXYHEMOGLOBIN 94.4 % (94.0-97.0); BG PCO2 40.6 mmHg (35.0-45.0); BG PH 7.549 (7.350-7.450); BG PO2 76.9 mmHg (75.0-100.0); BG SAMPLE SITE RIGHT BRACHIAL; BG TOTAL HEMOGLOBIN 10.9 g/dL (12.0-18.0); BG VENT MODE MASK - BIPAP
[2021-09-19] MEDS: LEVETIRACETAM 500MG PREMIX 100 ML IV SCH ×2 (08:27→21:22)
[2021-09-19] MEDS: SPIRONOLACTONE 25MG TABLET PO SCH (08:27)
[2021-09-19] MEDS: METOPROLOL TARTRATE 50MG TABLET PO SCH ×2 (08:27→21:22)
[2021-09-19] MEDS: THIAMINE HCL 100MG TABLET PO SCH (08:27)
[2021-09-19] MEDS: FOLIC ACID 1MG TABLET PO SCH (08:27)
[2021-09-19] MEDS: PANTOPRAZOLE SODIUM 40 MG/VIAL IV SCH (08:27)
[2021-09-19] MEDS: PIPERACILLIN/TAZOBACTAM 3.375 G in DEXTROSE 5% WATER 50 ML IV SCH ×3 (10:04→22:17)
[2021-09-19] MEDS: KCL 20MEQ/100ML PREMIX 100 ML IV SCH ×2 (11:41→12:59)
[2021-09-19 17:35] LABS: PLATELET ESTIMATE NORMAL
[2021-09-19] MEDS: GUAIFENESIN-DM 200MG-20MG/10ML UDC PO PRN (20:02)
[2021-09-19] MEDS: DILTIAZEM HCL 5MG/ML 5ML VIAL IV PRN (23:51)
[2021-09-20] VITALS (46 sets, daily range): BP systolic 134–192; BP diastolic 75–126
[2021-09-20] MEDS: GUAIFENESIN-DM 200MG-20MG/10ML UDC PO PRN (02:35)
[2021-09-20] MEDS: PIPERACILLIN/TAZOBACTAM 3.375 G in DEXTROSE 5% WATER 50 ML IV SCH ×3 (06:22→22:47)
[2021-09-20] MEDS: FUROSEMIDE 40MG/4ML VIAL IVP SCH (07:01)
[2021-09-20] MEDS: PANTOPRAZOLE SODIUM 40 MG/VIAL IV SCH (08:03)
[2021-09-20] MEDS: METOPROLOL TARTRATE 50MG TABLET PO SCH ×2 (08:03→22:48)
[2021-09-20] MEDS: LEVETIRACETAM 500MG PREMIX 100 ML IV SCH ×2 (08:03→21:10)
[2021-09-20] MEDS: SPIRONOLACTONE 25MG TABLET PO SCH (08:04)
[2021-09-20] MEDS: THIAMINE HCL 100MG TABLET PO SCH (08:04)
[2021-09-20] MEDS: FOLIC ACID 1MG TABLET PO SCH (08:04)
[2021-09-20] MEDS: IPRATROPIUM BROMIDE (0.02%) 0.5MG/2.5ML NEB HHN SCH ×3 (08:29→21:44)
[2021-09-20] MEDS: ACETYLCYSTEINE 100MG/ML 10% VIAL 4ML INH SCH (08:29)
[2021-09-20 10:13] LABS: BG CARBOXYHEMOGLOBIN 0.1 % (0.5-1.5); BG DEOXYHEMOGLOBIN 1.5 % (0.0-5.0); BG FRACTION INSPIRED OXYGEN 50; BG HCO3 ACT 37.2 mmol/L (22.0-26.0); BG METHEMOGLOBIN 0.2 % (0.0-1.5); BG OXYGEN SATURATION 98.5 % (92.0-98.5); BG OXYHEMOGLOBIN 98.2 % (94.0-97.0); BG PH 7.576 (7.350-7.450); BG PO2 121.2 mmHg (75.0-100.0); BG SAMPLE SITE LEFT RADIAL; BG TOTAL RESPIRATORY RATE 21 b/min; BG VENT MODE MASK - BIPAP
[2021-09-20] MEDS ORDERED: DOCUSATE SODIUM SUGAR FREE 100MG/10ML UDC NG PRN (11:00)
[2021-09-20] MEDS ORDERED: ACETAZOLAMIDE SODIUM 500MG/VIAL IV SCH (12:00)
[2021-09-20 15:24] LABS: CHLORIDE 97 mEq/L (98-107)
[2021-09-20] MEDS: ACETAMINOPHEN 650MG/20.3ML UDC PO PRN (15:25)
[2021-09-20] MEDS ORDERED: POTASSIUM CHLORIDE INJ 40 MEQ in DEXT 5% WATER 500 ML IV ONE (16:00)
[2021-09-20 16:27] LABS: BG BASE EXCESS 11.6 mmol/L (-2.0-2.0); BG CARBOXYHEMOGLOBIN 0.3 % (0.5-1.5); BG DEOXYHEMOGLOBIN 0.5 % (0.0-5.0); BG FRACTION INSPIRED OXYGEN 60; BG HCO3 ACT 35.4 mmol/L (22.0-26.0); BG METHEMOGLOBIN 0.4 % (0.0-1.5); BG OXYGEN SATURATION 99.5 % (92.0-98.5); BG OXYHEMOGLOBIN 98.8 % (94.0-97.0); BG PCO2 43.8 mmHg (35.0-45.0); BG PH 7.526 (7.350-7.450); BG PO2 191.7 mmHg (75.0-100.0); BG SAMPLE SITE LEFT RADIAL; BG TOTAL HEMOGLOBIN 9.2 g/dL (12.0-18.0); BG TOTAL RESPIRATORY RATE 19 b/min; BG VENT MODE MASK - BIPAP
[2021-09-20] MEDS: KCL 20MEQ/100ML X 2 FOR TOTAL KCL 40MEQ/200ML IV SCH ×2 (18:02→21:03)
[2021-09-20] MEDS: DILTIAZEM HCL 60MG TABLET PO SCH ×2 (18:30→23:31)
[2021-09-20] MEDS ORDERED: KCL 20MEQ/100ML PREMIX 100 ML IV NR (23:30)
[2021-09-21] VITALS (12 sets, daily range): BP systolic 111–166; BP diastolic 58–103
[2021-09-21] MEDS: IPRATROPIUM BROMIDE (0.02%) 0.5MG/2.5ML NEB HHN SCH ×4 (02:12→20:27)
[2021-09-21] MEDS: ACETYLCYSTEINE 100MG/ML 10% VIAL 4ML INH SCH ×3 (02:13→14:08)
[2021-09-21] MEDS ORDERED: DEXTROSE 50% WATER 50ML SYRINGE IV PRN (04:00)
[2021-09-21] MEDS: BLOOD SUGAR DIAGNOSTIC STRIP TEST SCH ×3 (05:23→18:29)
[2021-09-21] MEDS: INSULIN LISPRO 100 UNITS/ML SUBCUT SCH ×3 (05:36→18:00)
[2021-09-21] MEDS: PIPERACILLIN/TAZOBACTAM 3.375 G in DEXTROSE 5% WATER 50 ML IV SCH ×3 (05:44→22:09)
[2021-09-21] MEDS: DILTIAZEM HCL 60MG TABLET PO SCH ×3 (05:44→18:58)
[2021-09-21] MEDS: PANTOPRAZOLE SODIUM 40 MG/VIAL IV SCH (09:58)
[2021-09-21] MEDS: LEVETIRACETAM 500MG PREMIX 100 ML IV SCH ×2 (09:58→22:09)
[2021-09-21] MEDS: SPIRONOLACTONE 25MG TABLET PO SCH (09:58)
[2021-09-21] MEDS: FOLIC ACID 1MG TABLET PO SCH (09:58)
[2021-09-21] MEDS: METOPROLOL TARTRATE 50MG TABLET PO SCH ×2 (09:59→22:10)
[2021-09-21] MEDS: THIAMINE HCL 100MG TABLET PO SCH (09:59)
[2021-09-21 10:17] LABS: MEAN CORPUSCULAR HEMOGLOBIN 34.2 pg (28.0-32.0); MEAN CORPUSCULAR VOLUME 106.2 fL (81.0-99.0); MEAN PLATELET VOLUME 8.6 fl (7.4-10.4); PLATELET 385 x1000/uL (130-400); RED BLOOD CELL COUNT 2.91 mill/uL (4.2-5.4); RED CELL DISTRIBUTION WIDTH 15.4 % (11.6-14.6)
[2021-09-21 10:20] LABS: HEMATOCRIT. 30.9 % (36.0-48.0); HEMOGLOBIN. 9.9 g/dL (12.0-16.0)
[2021-09-21 10:33] LABS: CHLORIDE 103 mEq/L (98-107)
[2021-09-21 11:28] LABS: PLATELET ESTIMATE NORMAL
[2021-09-21] MEDS: KCL 20MEQ/100ML PREMIX 100 ML IV SCH ×2 (14:11→15:00)
[2021-09-21 14:16] LABS: BG BASE EXCESS 2.9 mmol/L (-2.0-2.0); BG CARBOXYHEMOGLOBIN 0.3 % (0.5-1.5); BG DEOXYHEMOGLOBIN 8.5 % (0.0-5.0); BG FRACTION INSPIRED OXYGEN 60; BG HCO3 ACT 25.6 mmol/L (22.0-26.0); BG METHEMOGLOBIN 0.3 % (0.0-1.5); BG OXYGEN SATURATION 91.4 % (92.0-98.5); BG OXYHEMOGLOBIN 90.9 % (94.0-97.0); BG PCO2 32.8 mmHg (35.0-45.0); BG PH 7.511 (7.350-7.450); BG PO2 61.7 mmHg (75.0-100.0); BG SAMPLE SITE LEFT RADIAL; BG TOTAL HEMOGLOBIN 10.3 g/dL (12.0-18.0); BG VENT MODE MASK - BIPAP
[2021-09-21] MEDS: ACETAMINOPHEN 650MG/20.3ML UDC PO PRN (15:27)
[2021-09-22] VITALS (54 sets, daily range): BP systolic 69–159; BP diastolic 25–82
[2021-09-22] MEDS: INSULIN LISPRO 100 UNITS/ML SUBCUT SCH ×4 (00:01→18:00)
[2021-09-22] MEDS: BLOOD SUGAR DIAGNOSTIC STRIP TEST SCH ×4 (00:04→18:00)
[2021-09-22] MEDS: IPRATROPIUM BROMIDE (0.02%) 0.5MG/2.5ML NEB HHN SCH ×2 (02:07→09:07)
[2021-09-22 05:35] LABS: HEMATOCRIT. 30.9 % (36.0-48.0); HEMOGLOBIN. 9.8 g/dL (12.0-16.0); MEAN CORPUSCULAR HEMOGLOBIN 34.3 pg (28.0-32.0); MEAN CORPUSCULAR VOLUME 107.5 fL (81.0-99.0); MEAN PLATELET VOLUME 8.6 fl (7.4-10.4); PLATELET 372 x1000/uL (130-400); RED BLOOD CELL COUNT 2.87 mill/uL (4.2-5.4)
[2021-09-22 05:43] LABS: CHLORIDE 110 mEq/L (98-107)
[2021-09-22] MEDS: DILTIAZEM HCL 60MG TABLET PO SCH ×4 (06:16→19:08)
[2021-09-22] MEDS: PIPERACILLIN/TAZOBACTAM 3.375 G in DEXTROSE 5% WATER 50 ML IV SCH ×3 (06:17→21:52)
[2021-09-22] MEDS ORDERED: ETOMIDATE 2MG/ML 10ML VIAL IV ONE (06:31)
[2021-09-22] MEDS ORDERED: VECURONIUM BROMIDE 10 MG/VIAL IV ONE (06:31)
[2021-09-22] MEDS: LEVETIRACETAM 500MG PREMIX 100 ML IV SCH ×2 (09:08→21:51)
[2021-09-22] MEDS: PANTOPRAZOLE SODIUM 40 MG/VIAL IV SCH (09:08)
[2021-09-22] MEDS: SPIRONOLACTONE 25MG TABLET PO SCH (09:09)
[2021-09-22] MEDS: METOPROLOL TARTRATE 50MG TABLET PO SCH (09:09)
[2021-09-22] MEDS: FOLIC ACID 1MG TABLET PO SCH (09:09)
[2021-09-22] MEDS: THIAMINE HCL 100MG TABLET PO SCH (09:09)
[2021-09-22 09:26] LABS: BG BASE EXCESS -1.5 mmol/L (-2.0-2.0); BG CARBOXYHEMOGLOBIN 0.2 % (0.5-1.5); BG DEOXYHEMOGLOBIN 16.3 % (0.0-5.0); BG FRACTION INSPIRED OXYGEN 70; BG HCO3 ACT 29.9 mmol/L (22.0-26.0); BG OXYGEN SATURATION 83.7 % (92.0-98.5); BG OXYHEMOGLOBIN 83.5 % (94.0-97.0); BG PCO2 96.6 mmHg (35.0-45.0); BG PH 7.108 (7.350-7.450); BG PO2 60.9 mmHg (75.0-100.0); BG SAMPLE SITE LEFT RADIAL; BG TOTAL HEMOGLOBIN 10.9 g/dL (12.0-18.0); BG TOTAL RESPIRATORY RATE 23 b/min; BG VENT MODE MASK - BIPAP
[2021-09-22] MEDS ORDERED: PROPOFOL 10MG/ML 100ML 100 ML IV PRN (12:30)
[2021-09-22 12:52] LABS: BG BASE EXCESS -3.5 mmol/L (-2.0-2.0); BG CARBOXYHEMOGLOBIN 0.6 % (0.5-1.5); BG DEOXYHEMOGLOBIN 9.6 % (0.0-5.0); BG FRACTION INSPIRED OXYGEN 60; BG HCO3 ACT 26.3 mmol/L (22.0-26.0); BG METHEMOGLOBIN 0.2 % (0.0-1.5); BG OXYGEN SATURATION 90.3 % (92.0-98.5); BG OXYHEMOGLOBIN 89.6 % (94.0-97.0); BG PCO2 76.6 mmHg (35.0-45.0); BG PH 7.154 (7.350-7.450); BG SAMPLE SITE LEFT RADIAL; BG TOTAL HEMOGLOBIN 10.5 g/dL (12.0-18.0); BG VENT MODE VENT - AC
[2021-09-22] MEDS ORDERED: NOREPINEPHRINE 8 MG in DEXT 5% WATER 242 ML IV PRN (13:00)
[2021-09-22 13:56] LABS: PLATELET ESTIMATE NORMAL
[2021-09-22] MEDS ORDERED: IPRATROPIUM/ALBUTEROL 0.5-3(2.5)MG/3ML NEB ONE (14:33)
[2021-09-22] MEDS: ACETYLCYSTEINE 100MG/ML 10% VIAL 4ML INH SCH (14:36)
[2021-09-22] MEDS: IPRATROPIUM/ALBUTEROL 0.5-3(2.5)MG/3ML NEB HHN SCH ×2 (14:37→20:19)
[2021-09-22] MEDS: FENTANYL 2500MCG/250ML PMX 250 ML IV PRN (15:07)
[2021-09-22 15:51] LABS: BG BASE EXCESS 2.3 mmol/L (-2.0-2.0); BG CARBOXYHEMOGLOBIN 0.3 % (0.5-1.5); BG DEOXYHEMOGLOBIN 0.7 % (0.0-5.0); BG FRACTION INSPIRED OXYGEN 90; BG HCO3 ACT 28.3 mmol/L (22.0-26.0); BG METHEMOGLOBIN 0.2 % (0.0-1.5); BG OXYGEN SATURATION 99.3 % (92.0-98.5); BG OXYHEMOGLOBIN 98.8 % (94.0-97.0); BG PCO2 50.7 mmHg (35.0-45.0); BG PH 7.364 (7.350-7.450); BG PO2 212.3 mmHg (75.0-100.0); BG SAMPLE SITE RIGHT RADIAL; BG TOTAL HEMOGLOBIN 10.1 g/dL (12.0-18.0); BG VENT MODE VENT - AC
[2021-09-22] MEDS: ACETAMINOPHEN 650MG/20.3ML UDC PO PRN (17:32)
[2021-09-23] VITALS (95 sets, daily range): BP systolic 93–139; BP diastolic 45–91
[2021-09-23] MEDS: BLOOD SUGAR DIAGNOSTIC STRIP TEST SCH ×5 (00:06→23:56)
[2021-09-23] MEDS: IPRATROPIUM/ALBUTEROL 0.5-3(2.5)MG/3ML NEB HHN SCH ×6 (00:12→20:24)
[2021-09-23] MEDS: ACETYLCYSTEINE 100MG/ML 10% VIAL 4ML INH SCH ×4 (00:12→22:00)
[2021-09-23] MEDS: DILTIAZEM HCL 60MG TABLET PO SCH ×5 (00:52→23:57)
[2021-09-23] MEDS: PIPERACILLIN/TAZOBACTAM 3.375 G in DEXTROSE 5% WATER 50 ML IV SCH ×3 (05:27→22:46)
[2021-09-23] MEDS: INSULIN LISPRO 100 UNITS/ML SUBCUT SCH ×5 (05:28→23:56)
[2021-09-23 06:18] LABS: HEMATOCRIT. 26.8 % (36.0-48.0); HEMOGLOBIN. 8.5 g/dL (12.0-16.0); MEAN PLATELET VOLUME 9.3 fl (7.4-10.4); NEUTROPHILS % 88.9 % (40.0-76.0); PLATELET 273 x1000/uL (130-400); RED BLOOD CELL COUNT 2.51 mill/uL (4.2-5.4); RED CELL DISTRIBUTION WIDTH 15.6 % (11.6-14.6)
[2021-09-23 06:19] LABS: BASOPHILS % 0.1 % (0.0-2.0); EOSINOPHILS % 0.3 % (0.0-5.0); MONOCYTES % 2.7 % (2.0-8.0)
[2021-09-23 06:48] LABS: CHLORIDE 109 mEq/L (98-107)
[2021-09-23 07:48] LABS: BG BASE EXCESS 2.7 mmol/L (-2.0-2.0); BG DEOXYHEMOGLOBIN 1.5 % (0.0-5.0); BG HCO3 ACT 26.5 mmol/L (22.0-26.0); BG METHEMOGLOBIN 0.3 % (0.0-1.5); BG OXYGEN SATURATION 98.5 % (92.0-98.5); BG OXYHEMOGLOBIN 98.2 % (94.0-97.0); BG PCO2 37.3 mmHg (35.0-45.0); BG PH 7.469 (7.350-7.450); BG PO2 118.1 mmHg (75.0-100.0); BG SAMPLE SITE RIGHT BRACHIAL; BG TOTAL HEMOGLOBIN 9.4 g/dL (12.0-18.0); BG VENT MODE VENT - AC
[2021-09-23] MEDS: PANTOPRAZOLE SODIUM 40 MG/VIAL IV SCH (09:00)
[2021-09-23] MEDS: FUROSEMIDE 40MG/4ML VIAL IVP SCH (09:01)
[2021-09-23] MEDS: THIAMINE HCL 100MG TABLET PO SCH (09:01)
[2021-09-23] MEDS: FOLIC ACID 1MG TABLET PO SCH (09:01)
[2021-09-23] MEDS: SPIRONOLACTONE 25MG TABLET PO SCH (09:01)
[2021-09-23] MEDS: LEVETIRACETAM 500MG PREMIX 100 ML IV SCH ×2 (10:03→21:52)
[2021-09-23] MEDS: FENTANYL 2500MCG/250ML PMX 250 ML IV PRN (20:35)
[2021-09-24] VITALS (49 sets, daily range): BP systolic 98–159; BP diastolic 48–85
[2021-09-24] MEDS: IPRATROPIUM/ALBUTEROL 0.5-3(2.5)MG/3ML NEB HHN SCH ×6 (00:18→20:22)
[2021-09-24] MEDS: ACETYLCYSTEINE 100MG/ML 10% VIAL 4ML INH SCH ×3 (00:18→16:24)
[2021-09-24] MEDS: BLOOD SUGAR DIAGNOSTIC STRIP TEST SCH ×4 (05:21→23:48)
[2021-09-24] MEDS: INSULIN LISPRO 100 UNITS/ML SUBCUT SCH ×4 (05:21→23:48)
[2021-09-24] MEDS: PIPERACILLIN/TAZOBACTAM 3.375 G in DEXTROSE 5% WATER 50 ML IV SCH ×3 (05:22→22:05)
[2021-09-24] MEDS: DILTIAZEM HCL 60MG TABLET PO SCH ×2 (05:22→12:08)
[2021-09-24 05:28] LABS: BASOPHILS % 0.1 % (0.0-2.0); HEMATOCRIT. 26.1 % (36.0-48.0); HEMOGLOBIN. 8.8 g/dL (12.0-16.0); LYMPHOCYTES % 7.7 % (20.0-50.0); MEAN CORPUSCULAR HEMOGLOBIN 34.6 pg (28.0-32.0); MEAN CORPUSCULAR VOLUME 102.6 fL (81.0-99.0); MEAN PLATELET VOLUME 9.2 fl (7.4-10.4); MONOCYTES % 2.4 % (2.0-8.0); NEUTROPHILS % 88.8 % (40.0-76.0); PLATELET 303 x1000/uL (130-400); RED BLOOD CELL COUNT 2.55 mill/uL (4.2-5.4); RED CELL DISTRIBUTION WIDTH 15.2 % (11.6-14.6)
[2021-09-24 08:58] LABS: BG BASE EXCESS 3.6 mmol/L (-2.0-2.0); BG CARBOXYHEMOGLOBIN 0.4 % (0.5-1.5); BG DEOXYHEMOGLOBIN 4.3 % (0.0-5.0); BG FRACTION INSPIRED OXYGEN 40; BG HCO3 ACT 27.7 mmol/L (22.0-26.0); BG METHEMOGLOBIN 0.4 % (0.0-1.5); BG OXYGEN SATURATION 95.7 % (92.0-98.5); BG OXYHEMOGLOBIN 94.9 % (94.0-97.0); BG PCO2 39.9 mmHg (35.0-45.0); BG PH 7.459 (7.350-7.450); BG PO2 83.2 mmHg (75.0-100.0); BG SAMPLE SITE LEFT RADIAL; BG TOTAL HEMOGLOBIN 8.8 g/dL (12.0-18.0); BG VENT MODE VENT - AC
[2021-09-24] MEDS: FOLIC ACID 1MG TABLET PO SCH (09:02)
[2021-09-24] MEDS: FUROSEMIDE 40MG/4ML VIAL IVP SCH (09:02)
[2021-09-24] MEDS: SPIRONOLACTONE 25MG TABLET PO SCH (09:02)
[2021-09-24] MEDS: PANTOPRAZOLE SODIUM 40 MG/VIAL IV SCH (09:02)
[2021-09-24] MEDS ORDERED: POTASSIUM CHLORIDE INJ 40 MEQ in DEXT 5% WATER 250 ML IV ONE (11:15)
[2021-09-24] MEDS: LEVETIRACETAM 500MG PREMIX 100 ML IV SCH ×2 (12:07→21:14)
[2021-09-24] MEDS: SODIUM CHLORIDE 0.45% 1,000 ML IV SCH (12:07)
[2021-09-24] MEDS: THIAMINE HCL 100MG TABLET PO SCH (14:01)
[2021-09-24] MEDS: KCL 20MEQ/100ML X 2 FOR TOTAL KCL 40MEQ/200ML IV SCH ×2 (14:02→16:32)
[2021-09-24] MEDS: FENTANYL 2500MCG/250ML PMX 250 ML IV PRN (22:08)
[2021-09-24] MEDS: ACETAMINOPHEN 650MG/20.3ML UDC PO PRN (23:49)
[2021-09-25] VITALS (86 sets, daily range): BP systolic 87–170; BP diastolic 36–96
[2021-09-25] MEDS: IPRATROPIUM/ALBUTEROL 0.5-3(2.5)MG/3ML NEB HHN SCH ×3 (00:31→08:32)
[2021-09-25] MEDS: ACETYLCYSTEINE 100MG/ML 10% VIAL 4ML INH SCH ×2 (00:32→08:32)
[2021-09-25 05:31] LABS: BASOPHILS % 0.3 % (0.0-2.0); EOSINOPHILS % 1.6 % (0.0-5.0); HEMATOCRIT. 23.6 % (36.0-48.0); HEMOGLOBIN. 7.8 g/dL (12.0-16.0); LYMPHOCYTES % 7.1 % (20.0-50.0); MEAN CORPUSCULAR HEMOGLOBIN 34.2 pg (28.0-32.0); MEAN PLATELET VOLUME 8.9 fl (7.4-10.4); MONOCYTES % 3.1 % (2.0-8.0); NEUTROPHILS % 87.9 % (40.0-76.0); PLATELET 269 x1000/uL (130-400); RED BLOOD CELL COUNT 2.29 mill/uL (4.2-5.4); RED CELL DISTRIBUTION WIDTH 15.5 % (11.6-14.6)
[2021-09-25 05:38] LABS: CHLORIDE 114 mEq/L (98-107)
[2021-09-25] MEDS: INSULIN LISPRO 100 UNITS/ML SUBCUT SCH (06:00)
[2021-09-25] MEDS: BLOOD SUGAR DIAGNOSTIC STRIP TEST SCH (06:32)
[2021-09-25] MEDS: SODIUM CHLORIDE 0.45% 1,000 ML IV SCH (06:33)
[2021-09-25 07:56] LABS: BG BASE EXCESS 4.3 mmol/L (-2.0-2.0); BG CARBOXYHEMOGLOBIN 0.7 % (0.5-1.5); BG DEOXYHEMOGLOBIN 3.3 % (0.0-5.0); BG HCO3 ACT 28.7 mmol/L (22.0-26.0); BG METHEMOGLOBIN 0.4 % (0.0-1.5); BG OXYGEN SATURATION 96.7 % (92.0-98.5); BG OXYHEMOGLOBIN 95.6 % (94.0-97.0); BG PCO2 42.6 mmHg (35.0-45.0); BG PH 7.447 (7.350-7.450); BG PO2 91.3 mmHg (75.0-100.0); BG SAMPLE SITE LEFT RADIAL; BG TOTAL HEMOGLOBIN 8.9 g/dL (12.0-18.0); BG VENT MODE VENT - AC
[2021-09-25] MEDS: THIAMINE HCL 100MG TABLET PO SCH (08:55)
[2021-09-25] MEDS: LEVETIRACETAM 500MG PREMIX 100 ML IV SCH (08:55)
[2021-09-25] MEDS: PANTOPRAZOLE SODIUM 40 MG/VIAL IV SCH (08:56)
[2021-09-25] MEDS: SPIRONOLACTONE 25MG TABLET PO SCH (08:56)
[2021-09-25] MEDS: FOLIC ACID 1MG TABLET PO SCH (08:56)
[2021-09-25] MEDS: ACETAMINOPHEN 650MG/20.3ML UDC PO PRN (09:50)
[2021-09-25] MEDS: MORPHINE SULFATE 250 MG in DEXT 5% WATER 225 ML IV PRN ×3 (10:35→20:45)
[2021-09-26] VITALS (46 sets, daily range): BP systolic 90–118; BP diastolic 43–73
[2021-09-26] MEDS: MORPHINE SULFATE 250 MG in DEXT 5% WATER 225 ML IV PRN ×5 (00:11→15:24)
== END 2021-09-26 22:29 | DRG 871 ==
LOC: ER 09:53 → MICUSO 12:33 → MICUNO 09-10 02:20 → 5EST 09-20 18:48 → MICUNO 09-22 12:05 → 6EST 09-26 11:05
PROVIDERS: ADMIT Hospitalist; ATTEND Hospitalist
PROC: 5A1945Z Respiratory Ventilation, 24-96 Consecutive Hours (ICD-10-PCS; principal; 2021-09-09)
PROC: 0BH17EZ Insertion of Endotracheal Airway into Trachea, Via Natural or Artificial Opening (ICD-10-PCS; 2021-09-09)
PROC: 4A10X4Z Monitoring of Central Nervous Electrical Activity, External Approach (ICD-10-PCS; 2021-09-10)
PROC: 30233N1 Transfusion of Nonautologous Red Blood Cells into Peripheral Vein, Percutaneous Approach (ICD-10-PCS; 2021-09-11)
PROC: 5A09457 Assistance with Respiratory Ventilation, 24-96 Consecutive Hours, Continuous Positive Airway Pressure (ICD-10-PCS; 2021-09-15)
PROC: 02HV33Z Insertion of Infusion Device into Superior Vena Cava, Percutaneous Approach (ICD-10-PCS; 2021-09-18)
PROC: B548ZZA Ultrasonography of Superior Vena Cava, Guidance (ICD-10-PCS; 2021-09-18)
PROC: 5A09457 Assistance with Respiratory Ventilation, 24-96 Consecutive Hours, Continuous Positive Airway Pressure (ICD-10-PCS; 2021-09-20)
PROC: 0BH17EZ Insertion of Endotracheal Airway into Trachea, Via Natural or Artificial Opening (ICD-10-PCS; 2021-09-22)
PROC: 5A1945Z Respiratory Ventilation, 24-96 Consecutive Hours (ICD-10-PCS; 2021-09-22)
DX: A41.9 Sepsis, unspecified organism (principal); J69.0 Pneumonitis due to inhalation of food and vomit; J96.01 Acute respiratory failure with hypoxia; R65.21 Severe sepsis with septic shock; G93.41 Metabolic encephalopathy; I63.511 Cerebral infarction due to unspecified occlusion or stenosis of right middle cerebral artery; J96.02 Acute respiratory failure with hypercapnia; I50.33 Acute on chronic diastolic (congestive) heart failure; I21.4 Non-ST elevation (NSTEMI) myocardial infarction; E44.1 Mild protein-calorie malnutrition; E87.1 Hypo-osmolality and hyponatremia; E87.2 Acidosis; I42.9 Cardiomyopathy, unspecified; E87.4 Mixed disorder of acid-base balance; D68.59 Other primary thrombophilia; E87.0 Hyperosmolality and hypernatremia; I48.20 Chronic atrial fibrillation, unspecified; N17.9 Acute kidney failure, unspecified; I48.91 Unspecified atrial fibrillation; E86.1 Hypovolemia; D53.9 Nutritional anemia, unspecified; I27.20 Pulmonary hypertension, unspecified; R56.9 Unspecified convulsions; R73.9 Hyperglycemia, unspecified; F10.10 Alcohol abuse, uncomplicated; Y90.9 Presence of alcohol in blood, level not specified; E04.1 Nontoxic single thyroid nodule; E87.6 Hypokalemia; I34.0 Nonrheumatic mitral (valve) insufficiency; I35.0 Nonrheumatic aortic (valve) stenosis; I49.3 Ventricular premature depolarization; I11.0 Hypertensive heart disease with heart failure; Z66 Do not resuscitate; Z87.891 Personal history of nicotine dependence; Z79.01 Long term (current) use of anticoagulants; Z78.1 Physical restraint status; Z86.73 Personal history of transient ischemic attack (TIA), and cerebral infarction without residual deficits
CPT/HCPCS: 36415; 36600; 70496; 70498; 70551; 71045; 71275; 76937; 80048; 80053; 80061; 80305; 80320; 81003; 82375; 82805; 82962; 83036; 83540; 83550; 83605; 83735; 83880; 84145; 84439; 84443; 84478; 84484; 85014; 85018; 85025; 85027; 85379; 86850; 86900; 86920; 87070; 93005; 93306; 93970; 94002; 94003; 94640; 94660; 94667; 95816; 97162; 97164; 99291; C1725; C9113; J0330; J0461; J1120; J1644; J1650; J1815; J1940; J1953; J2060; J2270; J2405; J2543; J2704; J3010; J3370; J3411; J3475; J3480; J3490; J7030; J7050; J7060; J7070; J7608; P9016; Q9967; A4315; G0480